=== PATIENT | female | born 1970 | race Caucasian/White ===

== ENCOUNTER 2018-09-01 22:36 | Emergency (ER) | payer SELFPAY ==
[~2018-09-01] VITALS: Ht 165.1 cm; Wt 117.9 kg
[2018-09-01 22:45] VITALS: BP 100/64
--- NOTE | 2018-09-01 23:03 | NUR ---
PT TAKEN TO BED 3
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
--- NOTE | 2018-09-01 23:17 | NUR ---
Dr. Del Valle evaluating patient at bedside.
[2018-09-01] MEDS: ONDANSETRON 4 MG ODT PO ONE (23:32)
[2018-09-01] MEDS: KETOROLAC 30 MG/ML VIAL IM ONE (23:32)
[2018-09-02 00:32] VITALS: BP 111/68
--- NOTE | 2018-09-02 00:33 | NUR ---
Patient discharged with v/s stable. Written and verbal after care instructions given and explained. Patient alert, oriented and verbalized understanding of instructions. Ambulatory with steady gait. All questions addressed prior to discharge. ID band removed. Patient advised to follow up with PMD. Rx of BLACK SWAIN given. Patient educated on indication of medication including possible reaction and side effects. Opportunity to ask questions provided and answered.
== END 2018-09-02 00:33 | disposition home or self-care (01) ==
LOC: MED 22:36
DX: M25.562 Pain in left knee (principal); M25.552 Pain in left hip; I48.91 Unspecified atrial fibrillation; F17.210 Nicotine dependence, cigarettes, uncomplicated; V03.90XA Pedestrian on foot injured in collision with car, pick-up truck or van, unspecified whether traffic or nontraffic accident, initial encounter; Y93.89 Activity, other specified; Y92.481 Parking lot as the place of occurrence of the external cause; Y99.8 Other external cause status
CPT/HCPCS: 73552; 96372; 99283; J1885; Q0162